=== PATIENT | female | born 1990 | race Caucasian/White ===

== ENCOUNTER 2017-08-01 05:19 | Inpatient (IN) | payer MEDICAID ==
[2017-08-01] MEDS ORDERED: METHYLERGONOVINE 0.2 MG INJ IM (06:00)
[2017-08-01] MEDS ORDERED: OXYTOCIN 30 UNITS/LR 500 ML IV (06:00)
[2017-08-01] MEDS ORDERED: CARBOPROST 250 MCG INJ IM (06:00)
[2017-08-01] MEDS ORDERED: MISOPROSTOL 200 MCG TAB PR ×2 (06:00→08:00)
[2017-08-01] MEDS ORDERED: CEFAZOLIN 2 GM/50 ML (PMX) 50 ML IV (06:00)
[2017-08-01 06:08] LABS: ADD MAN DIFF? NO
[2017-08-01 06:18] LABS: WHITE BLOOD COUNT 7.2 10^3/ul (4.8-10.8)
[2017-08-01 06:18] LABS: BASOPHILS % 0.3 % (0.0-2.0); EOSINOPHILS # 0.1 10^3/ul (0.0-0.5); EOSINOPHILS % 1.1 % (0.0-7.0); HEMATOCRIT 29.8 % (37.0-47.0); HEMOGLOBIN 9.9 g/dl (12.0-16.0); LYMPHOCYTES # 1.7 10^3/ul (0.8-2.9); LYMPHOCYTES % 23.8 % (15.0-51.0); MEAN CORPUSCULAR HEMOGLOBIN 28.5 pg (29.0-33.0); MEAN CORPUSCULAR HGB CONC 33.2 g/dl (32.0-37.0); MEAN CORPUSCULAR VOLUME 85.9 fl (82.0-101.0); MEAN PLATELET VOLUME 9.9 fl (7.4-10.4); MONOCYTE # 0.6 10^3/ul (0.3-0.9); MONOCYTES % 7.9 % (0.0-11.0); NEUTROPHIL # 4.8 10^3/ul (1.6-7.5); NEUTROPHILS % 66.2 % (39.0-77.0); PLATELET COUNT 190 10^3/UL (140-415); RED BLOOD COUNT 3.47 10^6/ul (4.20-5.40); RED CELL DISTRIBUTION WIDTH 13.1 % (11.5-14.5)
[2017-08-01] MEDS: LACTATED RINGER'S 1,000 ML IV ×6 (06:30→23:51)
[2017-08-01 06:41] LABS: INR 0.92; PROTIME 12.4 Sec (11.9-14.9)
[2017-08-01 06:42] LABS: PARTIAL THROMBOPLASTIN TIME 26.1 Sec (25.0-35.0)
[2017-08-01 07:05] LABS: HEPATITIS B SURFACE ANTIGEN NEGATIVE (NEGATIVE)
[2017-08-01] MEDS ORDERED: morphine SULFATE/PF (10 MG/10 ML) INJ (07:58)
[2017-08-01] MEDS ORDERED: FENTAnyl 50 MCG/ML VIAL (07:58)
[2017-08-01] MEDS ORDERED: PHENYLephrine (100 MCG/ML) 5ML SYG (07:58)
[2017-08-01] MEDS ORDERED: BUPIVACAINE 0.75%/DEXT (SPINAL) 2 ML INJ (08:00)
[2017-08-01] MEDS ORDERED: NA PHOSPHATE/BIPHOS 133 ML ENEMA PR (08:00)
[2017-08-01] MEDS ORDERED: ONDANSETRON 4 MG INJ (08:11)
[2017-08-01] MEDS ORDERED: DEXAMETHASONE 4 MG/ML 1 ML INJ (08:11)
[2017-08-01] MEDS ORDERED: DIPHENHYDRAMINE 50 MG INJ IV (09:00)
[2017-08-01] MEDS ORDERED: NALOXONE (0.4 MG/ML) INJ IV (09:00)
[2017-08-01] MEDS ORDERED: NALBUPHINE HCL (10 MG/1 ML) INJ IV (09:00)
[2017-08-01] MEDS ORDERED: ZOLPIDEM 5 MG TAB PO (09:00)
[2017-08-01] MEDS ORDERED: HYDROmorphONE 0.5 MG/0.5 ML SYG IV (09:00)
[2017-08-01] MEDS ORDERED: ONDANSETRON 4 MG INJ IV (09:00)
[2017-08-01] MEDS: OXYTOCIN 30 UNITS/LR 500 ML IV (09:27)
[2017-08-01] MEDS: KETOROLAC 30 MG INJ IV (10:56)
[2017-08-01] MEDS: SENNA/DOCUSATE NA (8.6MG/50MG) TAB PO ×2 (12:00→21:00)
[2017-08-01] MEDS: IBUPROFEN 600 MG TAB PO ×2 (12:00→18:00)
[2017-08-01] MEDS: HYDROmorphONE 0.5 MG/0.5 ML SYG IV (14:49)
[2017-08-01] MEDS: LANOLIN 7 GM TUBE TOP (18:05)
[2017-08-01 22:50] LABS: RAPID PLASMA REAGIN NONREACTIVE (NR)
[2017-08-02] MEDS: IBUPROFEN 600 MG TAB PO ×4 (05:26→18:04)
[2017-08-02] MEDS: LACTATED RINGER'S 1,000 ML IV (05:37)
[2017-08-02] MEDS: KETOROLAC 30 MG INJ IV (06:11)
[2017-08-02 07:39] LABS: ADD MAN DIFF? NO
[2017-08-02 07:42] LABS: BASOPHILS % 0.2 % (0.0-2.0); EOSINOPHILS % 0.3 % (0.0-7.0); HEMATOCRIT 25.8 % (37.0-47.0); HEMOGLOBIN 8.5 g/dl (12.0-16.0); LYMPHOCYTES # 2.1 10^3/ul (0.8-2.9); LYMPHOCYTES % 19.4 % (15.0-51.0); MEAN CORPUSCULAR HEMOGLOBIN 27.7 pg (29.0-33.0); MEAN CORPUSCULAR HGB CONC 32.9 g/dl (32.0-37.0); MEAN PLATELET VOLUME 9.9 fl (7.4-10.4); MONOCYTE # 0.7 10^3/ul (0.3-0.9); MONOCYTES % 6.7 % (0.0-11.0); NEUTROPHILS % 72.9 % (39.0-77.0); PLATELET COUNT 170 10^3/UL (140-415); RED BLOOD COUNT 3.07 10^6/ul (4.20-5.40)
[2017-08-02 07:42] LABS: WHITE BLOOD COUNT 10.9 10^3/ul (4.8-10.8)
[2017-08-02] MEDS: SENNA/DOCUSATE NA (8.6MG/50MG) TAB PO ×2 (09:44→20:33)
[2017-08-02] MEDS: OXYCODONE/ACETAMINOPHEN (5/325) TAB PO ×2 (09:45→20:34)
[2017-08-03] MEDS: IBUPROFEN 600 MG TAB PO ×5 (00:44→23:30)
[2017-08-03] MEDS: FERROUS SULFATE (EC) 325 MG TAB PO ×3 (08:41→20:36)
[2017-08-03] MEDS: SENNA/DOCUSATE NA (8.6MG/50MG) TAB PO ×2 (08:41→20:36)
[2017-08-03] MEDS: OXYCODONE/ACETAMINOPHEN (5/325) TAB PO ×2 (08:45→16:17)
[2017-08-04] MEDS: IBUPROFEN 600 MG TAB PO ×2 (05:41→11:26)
[2017-08-04] MEDS: SENNA/DOCUSATE NA (8.6MG/50MG) TAB PO (08:55)
[2017-08-04] MEDS: FERROUS SULFATE (EC) 325 MG TAB PO ×2 (08:56→13:30)
[2017-08-04] MEDS: DIPHTH/TET/ACEL PERTUSS (ADULT) 0.5 ML VIAL IM* (09:00)
[2017-08-04] MEDS: MEASLES,MUMPS,RUBELLA VACCINE INJ SC* (09:59)
[2017-08-04] MEDS: OXYCODONE/ACETAMINOPHEN (5/325) TAB PO (10:13)
== END 2017-08-04 16:50 | disposition home or self-care (01) | DRG 766 ==
LOC: L-D 05:19 → PP1 11:48
PROVIDERS: Specialist
PROC: 10D00Z1 Extraction of Products of Conception, Low, Open Approach (ICD-10-PCS; principal; 2017-08-01 07:30)
PROC: 0UB70ZZ Excision of Bilateral Fallopian Tubes, Open Approach (ICD-10-PCS; 2017-08-01 07:30)
DX: O34.219 Maternal care for unspecified type scar from previous cesarean delivery (principal); Z3A.39 39 weeks gestation of pregnancy; Z37.0 Single live birth; Z30.2 Encounter for sterilization
CPT/HCPCS: 85025; 85610; 85730; 86592; 86850; 86900; 86901; 87340; 88302; 94760; 99464